=== PATIENT | male | born 1960 ===

== ENCOUNTER 2018-10-07 09:41 | Day surgery (SDC) | payer OTHER ==
[2018-10-06 10:54] VITALS: BMI 23.7
[2018-10-07 10:10] VITALS: PULSE 62; RESP 16; TEMP 98; O2SAT 98
[2018-10-07] MEDS ORDERED: Lactated Ringer's 1,000 ML IV ONE (11:00)
[2018-10-07] MEDS ORDERED: Propofol 10 mg/ml Inj (20 ML) ONE ×2 (11:02→11:14)
--- NOTE | 2018-10-07 11:02 | CP.SDSHP ---
Same Day Surgery H & P - History Proposed Procedure: EGD Pre-Op Diagnosis: SEE NOTES - Previous Medical/Surgical History Cardiac: Hypertension Misc: Other Pain: 4.Moderate Pain - Allergies Allergies: Allergies No Known Allergies Allergy (Verified 10/06/18 10:56) - Physical Exam General Appearance: N Vital Signs: Vital Signs 10/07/18 10:03 Temperature 98 F Pulse Rate 62 Respiratory 16 Rate Blood Pressure 145/86 O2 Sat by Pulse 98 Oximetry Mental Status: Alert & Oriented x3 Neuro: WNL Heart: Other GI: Other - {Optional Preform as Required} Breast: WNL Abdomen: Other Rectal: Other Integument: WNL : WNL Ortho: WNL ENT: WNL - Impression Pt. Evaluated Today:Candidate for Anesthesia & Procedure: Yes - Date & Time Time: 11:02 Short Stay Discharge - Short Stay Discharge Admitting Diagnosis/Reason for Visit: DYSPEPSIA Disposition: HOME/ ROUTINE
[2018-10-07] MEDS ORDERED: Belladonna-Phenobarbital PO STA (11:05)
[2018-10-07] MEDS ORDERED: Pantoprazole 40 mg EC Tab PO ONE (11:45)
[2018-10-07 12:05] VITALS: BP 129/67
[2018-10-08] MEDS ORDERED: Pantoprazole 40 mg EC Tab PO ONE (11:40)
== END 2018-10-07 12:11 | disposition home or self-care (01) ==
LOC: C.ENDO 09:41
PROVIDERS: ATTEND Specialist
DX: K29.50 Unspecified chronic gastritis without bleeding (principal); K31.89 Other diseases of stomach and duodenum; K30 Functional dyspepsia; I10 Essential (primary) hypertension
CPT/HCPCS: 43239; 88305; J2001; J2704; J7120

== ENCOUNTER 2018-10-14 07:55 | Day surgery (SDC) | payer OTHER ==
[2018-10-06 10:54] VITALS: BMI 23.7
[2018-10-14] MEDS ORDERED: Lactated Ringer's 500 ML IV ONE (10:40)
[2018-10-14] MEDS ORDERED: Propofol 10 mg/ml Inj (20 ML) ONE (10:42)
[2018-10-14] MEDS ORDERED: Lidocaine Hydrochloride 5 ML INJ ONE (10:42)
[2018-10-14] MEDS ORDERED: Belladonna-Phenobarbital PO STA (10:46)
--- NOTE | 2018-10-14 10:46 | CP.SDSHP ---
Same Day Surgery H & P - History Proposed Procedure: COLONSCOPY Pre-Op Diagnosis: SEE NOTES - Previous Medical/Surgical History Cardiac: Hypertension Misc: Other Pain: 4.Moderate Pain - Allergies Allergies: Allergies No Known Allergies Allergy (Verified 10/14/18 09:38) - Physical Exam General Appearance: N Vital Signs: Vital Signs 10/14/18 09:53 Temperature 97.8 F Pulse Rate 64 Respiratory 19 Rate Blood Pressure 122/72 O2 Sat by Pulse 98 Oximetry Mental Status: Alert & Oriented x3 Neuro: WNL Heart: Other Lungs: WNL GI: WNL - {Optional Preform as Required} Breast: WNL Rectal: Other Integument: WNL : WNL Ortho: WNL ENT: WNL - Impression Pt. Evaluated Today:Candidate for Anesthesia & Procedure: Yes - Date & Time Time: 10:45 Short Stay Discharge - Short Stay Discharge Admitting Diagnosis/Reason for Visit: RECTAL BLEEDING Disposition: HOME/ ROUTINE
[2018-10-14] MEDS ORDERED: Midazolam 2 MG/2 ML VIAL ONE (10:49)
[2018-10-14 11:56] VITALS: TEMP 97.1; O2SAT 100
[2018-10-14 12:03] VITALS: BP 107/69; PULSE 61; RESP 16
== END 2018-10-14 12:38 | disposition home or self-care (01) ==
LOC: C.ENDO 07:55
PROVIDERS: ATTEND Specialist
DX: K62.5 Hemorrhage of anus and rectum (principal); K60.2 Anal fissure, unspecified; K58.9 Irritable bowel syndrome, unspecified
CPT/HCPCS: 45380; 88305; J2250; J2704; J7120